=== PATIENT | female | born 1985 | race Caucasian/White ===

== ENCOUNTER 2017-07-15 19:13 | Emergency (ER) | payer MEDICAID ==
[2017-07-15 19:23] VITALS: BP 142/82; PULSE 106; RESP 20; TEMP 97.8; O2SAT 100
[2017-07-15] MEDS ORDERED: SODIUM CHLOR 0.9% 1000 ML INJ 1,000 ML IV SCH (19:30)
[2017-07-15] MEDS ORDERED: EPINEPHrine HCL (1:1000) 1 MG/ML VIAL IM ONE (19:30)
[2017-07-15] MEDS ORDERED: SODIUM CHLORIDE 0.9% FLUSH 10 ML FLUSH IV FLUSH PRN (19:30)
[2017-07-15] MEDS ORDERED: FAMOTIDINE 20 MG/2 ML VIAL IV PUSH ONE (19:30)
[2017-07-15 19:33] VITALS: RESP 18; O2SAT 100
[2017-07-15] MEDS ORDERED: CYCL7.5T33 (19:34)
--- NOTE | 2017-07-15 19:42 | PD ---
HPI Chief Complaint: Allergic/Adverse Reaction Time Seen by Provider: 19:30 Travel History International Travel<30 days: No Contact w/Intl Traveler<30days: No Traveled to known affect area: No History of Present Illness HPI 32-year-old female presents to the emergency department by EMS transport from local restaurant where she was eating at a crab shack and started noticing immediate allergic reaction with redness to her arms and tightness and swelling of her throat. Patient's had previous allergic reaction in the past 1 with eating and 1 spontaneously and is unable to make an association with specific precipitating allergen. Patient in transport received Solu-Medrol Benadryl and 1 dose of epinephrine. Patient states she still continues to feel tightness in her throat and lip swelling. Patient denies any chest pain wheezing or shortness of breath no near syncope or syncope no nausea no vomiting and no abdominal cramping. Patient reportedly is otherwise in good health. Patient does not carry an EpiPen. PFSH Past Medical History Narrative Medical Allergic reaction/angioedema; appendectomy cholecystectomy get back surgery; alcohol use; nursing notes reviewed Medical History: Denies Significant Hx ?: Not Past Surgical History Appendectomy: Yes Cholecystectomy: Yes Gynecologic Surgery: Yes (HYSTERECTOMY ) Hysterectomy: Yes Other Surgery: Yes (BACK) Social History Alcohol Use: Yes (RARE) Tobacco Use: No Substance Use: No Allergies-Medications (Allergen,Severity, Reaction): Coded Allergies: No Known Allergies (Unverified , 07/15/17) Reported Meds & Prescriptions Reported Meds & Active Scripts Active Reported Flexeril (Cyclobenzaprine HCl) 7.5 Mg Tab 7.5 Mg TID Review of Systems Except as stated in HPI: all other systems reviewed are Neg Physical Exam Narrative GENERAL: Well-developed well-nourished female in no acute respiratory distress without hoarseness or stridor. SKIN: Warm and dry. No urticaria mild erythema to the dorsum of the forearms bilaterally; also mild sunburn changes to the upper back. HEAD: Normocephalic. EYES: No scleral icterus. No injection or drainage. ENT: Mild upper and lower lip swelling tongue midline without swelling posterior pharynx airway is patent no obvious edema; mucous membranes moist NECK: Supple, trachea midline. No JVD or lymphadenopathy. CARDIOVASCULAR: Mild increased regular rate and rhythm without murmurs, gallops , or rubs. RESPIRATORY: Breath sounds equal bilaterally. No wheezing. No accessory muscle use. GASTROINTESTINAL: Abdomen soft, non-tender, nondistended. MUSCULOSKELETAL: No cyanosis, or edema. BACK: Nontender without obvious deformity. No CVA tenderness. Data Data Last Documented VS Vital Signs Date Time Temp Pulse Resp B/P (MAP) Pulse Ox O2 Delivery O2 Flow Rate FiO2 07/15/17 19:47 82 142/82 07/15/17 19:33 18 100 07/15/17 19:23 97.8 Orders Orders Ecg Monitoring (07/15/17 19:30) Iv Access Insert/Monitor (07/15/17 19:30) Oximetry (07/15/17 19:30) Famotidine Inj (Pepcid Inj) (07/15/17 19:30) Sodium Chlor 0.9% 1000 Ml Inj (Ns 1000 M (07/15/17 19:30) Sodium Chloride 0.9% Flush (Ns Flush) (07/15/17 19:30) Epinephrine (1:1000) Inj (Adrenalin (1:1 (07/15/17 19:30) Ondansetron Inj (Zofran Inj) (07/15/17 20:00) MDM Medical Decision Making Medical Screen Exam Complete: Yes Emergency Medical Condition: Yes Medical Record Reviewed: Yes Differential Diagnosis Acute allergic reaction, angioedema, anaphylaxis, idiopathic urticaria Narrative Course Patient placed on cardiac rehab nurse with continuous pulse oximetry patient did receive Solu-Medrol Benadryl and IM epinephrine in route medications administered in the past half hour however patient continues to complain of tightness or ball-like sensation in the throat and upper airway; presently no stridor or hoarseness; persistent mild angioedema of the lips. Patient administered Pepcid 10 mg IV and additional dose of epinephrine 1:1000, 0.3 mL IM @ 8:40 clinically and symptomatically improved At 9:55 PM patient remains clinically asymptomatic and symptoms resolved at this time patient is stable for outpatient management is encouraged to try to identify possible precipitating allergens and in the interim not to consume any shellfish. Patient has been provided prescription for Medrol Dosepak and EpiPen is to continue to take Benadryl and Zantac 150 [id number] per directions Patient is return the emergency department for any concerns of follow-up with her primary care provider Diagnosis Primary Impression: Acute allergic reaction Qualified Codes: T78.40XA - Allergy, unspecified, initial encounter Additional Impression: Allergic angioedema Qualified Codes: T78.3XXA - Angioneurotic edema, initial encounter Referrals: Primary Care Physician 2 days Patient Instructions: General Instructions Additional Instructions: Increase fluid hydration however avoid hot foods and beverages for the next 12- 24 hours Avoid shellfish Take Benadryl 25-50 mg as often as every 4-6 hours as needed for allergic reaction symptoms Take Zantac 150 twice daily for 7 days Complete course of steroid as prescribed Use EpiPen for symptoms associated with allergic reaction such as lip or tongue or throat swelling Return to the emergency department for any concerns or change in condition Follow-up with your primary care provider Med/Other Pt SpecificInfo: Prescription(s) given Scripts Epinephrine Inj (Epipen 2-Sandeep Inj) 0.3 Mg/0.3 Ml Pfpen 0.3 MG IM ONCE Y for ALLERGIC REACTION, #1 PACK 0 Refills Prov: Chika Culver MD 07/15/17 Methylprednisolone Dosepak (Medrol Dosepak) 4 Mg Dspk 4 MG PO DIRECTED, #1 DSPK 0 Refills Per Pharmacist direction Prov: Chika Culver MD 07/15/17 Disposition: DISCHARGE HOME Condition: Stable Chika Culver MD Jul 15, 2017 19:42
[2017-07-15 19:47] VITALS: PULSE 82
[2017-07-15] MEDS ORDERED: ONDANSETRON HCL 4 MG/2 ML VIAL IV PUSH ONE (20:00)
[2017-07-15] MEDS ORDERED: EPIP0.3I IM (21:55)
[2017-07-15] MEDS ORDERED: MEDR4PAK PO (21:55)
[2017-07-15] MEDS ORDERED: KETOROLAC TROMETHAMINE 30 MG/ML (IVP) VIAL IV PUSH ONE (22:00)
[2017-07-15 22:13] VITALS: BP 130/91
== END 2017-07-15 22:14 | disposition home or self-care (01) ==
LOC: NEPC 19:13
DX: T78.1XXA Other adverse food reactions, not elsewhere classified, initial encounter (principal); T78.3XXA Angioneurotic edema, initial encounter; Z79.899 Other long term (current) drug therapy
CPT/HCPCS: 96361; 96372; 96374; 96375; 99284; J0171; J1885; J2405; J7030